=== PATIENT | female | born 2000 | race Two or more races ===

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

== ENCOUNTER 2020-11-05 17:01 | Inpatient (IN) | payer MEDICAID, OTHER ==
[~2020-11-05] VITALS: Ht 157.5 cm; Wt 76.4 kg
[2020-11-05] MEDS ORDERED: D5%-LACTATED RINGERS 1,000 ML IV SCH (17:30)
[2020-11-05] MEDS ORDERED: OXYTOCIN 30U/ 0.9% NaCL 500ML 500 ML IV ONE (17:30)
[2020-11-05] MEDS ORDERED: FENTANYL PF 100 MCG/2ML IVPush PRN (17:30)
[2020-11-05] MEDS ORDERED: TERBUTALINE 1 MG/ML, 1ML IVPush PRN (17:30)
[2020-11-05] MEDS ORDERED: LACTATED RINGERS 1,000 ML IV SCH ×2 (17:30→21:30)
[2020-11-05] MEDS ORDERED: TERBUTALINE 1 MG/ML, 1ML SQ PRN (17:30)
[2020-11-05] MEDS ORDERED: OXYTOCIN 30U/ 0.9% NaCL 500ML 500 ML IV PRN (17:30)
[2020-11-05] MEDS ORDERED: ONDANSETRON 2MG/ML, 2ML IVPush PRN (17:30)
[2020-11-05] MEDS ORDERED: PREN1TAB60 PO (17:33)
[2020-11-05] MEDS ORDERED: OXYTOCIN 30U/ 0.9% NaCL 500ML 500 ML ONE (17:35)
[2020-11-05 17:53] LABS: BASOPHILS % (AUTO) 1 % (0-1); EOSINOPHILS % (AUTO) 1 % (1-7); LYMPHOCYTES % (AUTO) 13 % (22-44); MEAN CORPUSCULAR HEMOGLOBIN 27.2 pg (27.0-34.8); MEAN CORPUSCULAR HGB CONC 32.9 g/dL (32.4-35.8); MEAN PLATELET VOLUME 9.2 fL (7.4-10.4); MONOCYTES % (AUTO) 7 % (2-9); NEUTROPHILS % (AUTO) 79 % (42-75); PLATELET COUNT 301 x10^3/uL (130-400); RED BLOOD COUNT 4.26 x10^6/uL (3.82-5.3); RED CELL DISTRIBUTION WIDTH 15.5 % (9.6-15.2)
[2020-11-05] MEDS ORDERED: NEWBORN KIT ONE (18:28)
[2020-11-05] MEDS ORDERED: LIDOCAINE 1%, 20ML ONE (18:28)
[2020-11-05] MEDS ORDERED: MISOPROSTOL 200 MCG TABLET ONE (18:29)
[2020-11-05] MEDS ORDERED: FENTANYL/BUPIV./NS/PF 250 ML EPIDCONT ONE (20:42)
[2020-11-05] MEDS ORDERED: FENTANYL/BUPIV./NS/PF 250 ML EPIDCONT SCH (21:30)
[2020-11-05] MEDS ORDERED: EPHEDRINE 50 MG/ML, 1ML IVPush PRN (21:30)
[2020-11-05] MEDS ORDERED: NALOXONE 0.4 MG/ML, 1ML IVPush PRN (21:30)
[2020-11-05] MEDS ORDERED: LACTATED RINGERS 1,000 ML IVBOLUS PRN (21:30)
[2020-11-06] MEDS ORDERED: ACETAMINOPHEN 325 MG TABLET PO PRN ×2 (01:00)
[2020-11-06] MEDS ORDERED: DOCUSATE 100 MG CAPSULE PO PRN (01:00)
[2020-11-06] MEDS ORDERED: MISOPROSTOL 200 MCG TABLET PR PRN (01:00)
[2020-11-06] MEDS: OXYTOCIN 30U/ 0.9% NaCL 500ML 500 ML IV SCH ×2 (01:00→22:14)
[2020-11-06] MEDS ORDERED: ONDANSETRON 2MG/ML, 2ML IV PRN (01:00)
[2020-11-06] MEDS ORDERED: SIMETHICONE 80 MG CHEW TAB PO PRN (01:00)
[2020-11-06 03:24] VITALS: BP 108/76
[2020-11-06] MEDS: IBUPROFEN 600 MG TABLET PO PRN ×3 (05:07→16:56)
[2020-11-06 07:57] VITALS: BP 108/70
[2020-11-06] MEDS ORDERED: PRENATAL VIT/IRON/FA 1 EACH TABLET PO SCH (09:00)
[2020-11-06 09:06] LABS: BASOPHILS % (AUTO) 0 % (0-1); EOSINOPHILS % (AUTO) 0 % (1-7); LYMPHOCYTES % (AUTO) 10 % (22-44); MEAN CORPUSCULAR HEMOGLOBIN 27.4 pg (27.0-34.8); MEAN PLATELET VOLUME 9.1 fL (7.4-10.4); MONOCYTES % (AUTO) 8 % (2-9); NEUTROPHILS % (AUTO) 82 % (42-75); PLATELET COUNT 251 x10^3/uL (130-400); RED BLOOD COUNT 3.66 x10^6/uL (3.82-5.3); RED CELL DISTRIBUTION WIDTH 15.6 % (9.6-15.2)
[2020-11-06 13:00] VITALS: BP 106/71
[2020-11-06 20:00] VITALS: BP 110/73
[2020-11-07 01:15] VITALS: BP 110/74
[2020-11-07] MEDS: IBUPROFEN 600 MG TABLET PO PRN (05:22)
[2020-11-07] MEDS: OXYTOCIN 30U/ 0.9% NaCL 500ML 500 ML IV SCH (07:00)
[2020-11-07] MEDS ORDERED: IBUP-1222 PO (12:08)
== END 2020-11-07 12:30 | disposition home or self-care (01) | DRG 807 ==
LOC: LDOP 17:01 → LDIP 17:23 → 2NW 11-06 03:00
PROVIDERS: ADMIT Obstetrics & Gynecology; ATTEND Obstetrics & Gynecology
PROC: 10E0XZZ Delivery of Products of Conception, External Approach (ICD-10-PCS; principal; 2020-11-06)
PROC: 0HQ9XZZ Repair Perineum Skin, External Approach (ICD-10-PCS; 2020-11-06)
PROC: 3E0R3BZ Introduction of Anesthetic Agent into Spinal Canal, Percutaneous Approach (ICD-10-PCS; 2020-11-06)
PROC: 00HU33Z Insertion of Infusion Device into Spinal Canal, Percutaneous Approach (ICD-10-PCS; 2020-11-06)
DX: O69.81X0 Labor and delivery complicated by cord around neck, without compression, not applicable or unspecified (principal); Z37.0 Single live birth; O70.0 First degree perineal laceration during delivery; Z3A.40 40 weeks gestation of pregnancy; Z20.822 Contact with and (suspected) exposure to COVID-19
CPT/HCPCS: 36415; J3490; 85025; 86592; 86850; 86900; 87635; G0378; J3010; J2590; J7120